=== PATIENT | female | born 2000 | race Caucasian/White ===

== ENCOUNTER 2020-01-15 19:25 | Emergency (ER) | payer SELFPAY ==
[~2020-01-15 19:25] MED LIST: Iopamidol 370 76% 100 ML VIAL ONE
[2020-01-15 19:49] LABS: Pregnancy Test - Urine (BHCG) Negative (Negative); Specific Gravity 1.028 (1.002-1.036)
[2020-01-15 19:50] LABS: Bilirubin Negative (Negative); Blood, Urine Negative (Negative); Clarity Hazy (Clear); Glucose, Urine (Dipstick) Negative (Negative); Leukocyte Trace (Negative); Nitrite Negative (Negative); Pregu Control Background? CLEAR/WHITE (CLR/WHITE); Pregu Control Bar Appear? YES (CONTROL BAR); Protein, Urine (Dipstick) Negative (Neg-Trace)
[2020-01-15 19:51] LABS: Bacteria/HPF Rare-Few HPF (None Seen); Mucous/LPF 2+ LPF (<2+); RBC/HPF None Seen HPF (0-3)
[2020-01-15] MEDS ORDERED: Ketorolac Tromethamine 30 MG/ML VIAL ONE (20:33)
[2020-01-15] MEDS ORDERED: Ondansetron PF 4 MG/2 ML Vial ONE (20:33)
[2020-01-15] MEDS ORDERED: Sodium Chloride 0.9% 1,000 ML ONE (20:33)
[2020-01-15 20:34] LABS: Band 3 % (5-11); Hemoglobin 12.8 g/dL (12.0-16.0); Lymphocytes 43 % (28-48); MDiff Complete? YES; Mean Corpuscular HGB CONC 32.1 g/dL (32.0-36.0); Mean Corpuscular Hemoglobin 26.5 pg (25.0-35.0); Mean Corpuscular Volume 82.4 fL (78.0-98.0); Mean Platelet Volume 5.9 fL (7.4-10.4); Monocytes 4 % (0-4); Neutrophil 50 % (31-61); Platelet Count 407 thou/uL (130-400); RBC Distribution Width 13.8 % (11.5-14.5); Red Blood Cell (RBC) Count 4.83 mill/uL (4.00-5.20); White Blood Cell (WBC) Count 5.6 thou/uL (4.8-10.8)
[2020-01-15 20:37] LABS: Anion Gap 14 mmol/L (10-20); BUN (Urea Nitrogen) 6 mg/dL (8.4-21.0); Calc. Creatinine Clearance 0 mL/min (70-130); Calcium 9.2 mg/dL (7.8-10.44); Carbon Dioxide 24 mmol/L (22-29); Chloride 106 mmol/L (98-107); Estimated GFR-MDRD Greater than 90; Glucose 91 mg/dL (70-105); Sodium 140 mmol/L (136-145)
--- NOTE | 2020-01-15 21:35 | CT ---
CT OF THE ABDOMEN AND PELVIS WITH IV CONTRAST: 01/15/20 INDICATION: History of right lower quadrant abdominal pain. COMPARISON: None. FINDINGS: Lung bases are clear. There is hypodensity involving the liver adjacent to the falciform ligament suspicious for area of fo teri fatty infiltration. The gallbladder is decompressed. Pancreas, adrenal gland and spleen appear wi thin normal limits. The kidneys appear within normal limits. No free fluid or enlarged lymph nodes ar e evident. There is a normal appendix seen within the right lower quadrant of the abdomen. No free fluid is stephanie sly evident. There is a 2.6 cm hypodense lesion within the region of the right adnexa. The bladder is partially d ecompressed. There is a 1.2 cm hypodense lesion seen within the region of the left adnexa. There is a moderate amount of retained stool within the colon. No acute osseous abnormality is evident. IMPRESSION: 1. Bilateral adnexal hypodensities incompletely characterized. If clinically indicated, further evaluation with pelvic ultrasound may be helpful for improved characterization. 2. Normal appendix. 3. Area of hypodensity seen within the liver adjacent to the falciform ligament suspicious for a n area of focal fatty infiltration. POS: BH
[2020-01-15] MEDS ORDERED: methylPREDNISolone Sod Succ/PF 125 MG/2 ML VIAL ONE (22:14)
== END 2020-01-15 22:02 | disposition home or self-care (01) ==
LOC: MADERS 19:25
DX: N83.209 Unspecified ovarian cyst, unspecified side (principal); J45.909 Unspecified asthma, uncomplicated
CPT/HCPCS: 74177; 80048; 81003; 81015; 81025; 85025; 87480; 87491; 87510; 87591; 87660; 96361; 96374; 96375; J1885; J2405; J2930; J7050; Q9967

== ENCOUNTER 2020-06-12 19:22 | Emergency (ER) | payer MEDICAID, SELFPAY ==
[2020-06-12] MEDS ORDERED: Metoclopramide HCl 10 MG TAB ONE (20:05)
[2020-06-12 20:30] LABS: Bilirubin Negative (Negative); Blood, Urine Negative (Negative); Clarity Clear (Clear); Glucose, Urine (Dipstick) Negative (Negative); Ketone, Urine Negative (Negative); Leukocyte Negative (Negative); Nitrite Negative (Negative); Protein, Urine (Dipstick) Negative (Neg-Trace); Specific Gravity, Urine 1.025 (1.005-1.030); Urobilinogen 0.2 mg/dL (Less than 2); pH, Urine 5.5 (5.0-9.0)
[2020-06-12 20:33] LABS: #Basophils 0.1 thou/uL (0.0-0.2); #Eosinphils 0.2 thou/uL (0.0-0.7); #Lymphocytes 2.6 thou/uL (1.20-3.40); #Monocytes 0.5 thou/uL (0.11-0.59); #Neutrophils 2.2 thou/uL (1.40-6.50); %Basophils 1.5 % (0.0-1.0); %Eosinophils 3.4 % (0.0-10.0); %Monocytes 9.4 % (0.0-4.0); %Neutrophils 38.8 % (31.0-61.0); Anisocytosis SLIGHT = 6-15 cells (100X) (0-5/hpf); Hemoglobin 11.2 g/dL (12.0-16.0); Hypochromia SLIGHT = 6-15 cells (100X) (0-5/hpf); MDiff Complete? YES; Mean Corpuscular HGB CONC 31.3 g/dL (32.0-36.0); Mean Corpuscular Hemoglobin 24.8 pg (25.0-35.0); Mean Corpuscular Volume 79.1 fL (78.0-98.0); Mean Platelet Volume 5.2 fL (7.4-10.4); Microcytosis SLIGHT = 6-15 cells (100X) (0-5/hpf); Platelet Count 392 thou/uL (130-400); Platelet Morphology Comment Appears Adequate; RBC Distribution Width 14.3 % (11.5-14.5); Red Blood Cell (RBC) Count 4.52 mill/uL (4.00-5.20); White Blood Cell (WBC) Count 5.6 thou/uL (4.8-10.8)
[2020-06-12 20:40] LABS: ALT (SGPT) 10 U/L (8-55); AST (SGOT) 16 U/L (5-30); Albumin 4.3 g/dL (3.5-5.0); Alkaline Phosphatase 84 U/L (40-100); Anion Gap 17 mmol/L (10-20); BUN (Urea Nitrogen) 5 mg/dL (8.4-21.0); Bilirubin, Total 0.5 mg/dL (0.2-1.2); Calc. Creatinine Clearance 0 mL/min (70-130); Calcium 9.1 mg/dL (7.8-10.44); Carbon Dioxide 23 mmol/L (22-29); Chloride 105 mmol/L (98-107); Estimated GFR-MDRD Greater than 90; Globulin 3.7 g/dL (2.4-3.5); Glucose 78 mg/dL (70-105); Potassium 3.5 mmol/L (3.5-5.1); Sodium 141 mmol/L (136-145)
== END 2020-06-12 20:58 | disposition left against medical advice (07) ==
LOC: MADERS 19:22
DX: R42 Dizziness and giddiness (principal); R51.9 Headache, unspecified; R09.81 Nasal congestion; J45.909 Unspecified asthma, uncomplicated
CPT/HCPCS: 36415; 80053; 81003; 84702; 85025; 99284

== ENCOUNTER 2020-10-16 21:45 | Emergency (ER) | payer MEDICAID, OTHER ==
[2020-10-16] MEDS ORDERED: Acetaminophen 500 MG TAB ONE (22:02)
[2020-10-16] MEDS ORDERED: Ondansetron PF 4 MG/2 ML Vial ONE (22:02)
[2020-10-16 22:50] LABS: Hemoglobin 12.8 g/dL (12.0-16.0); Mean Corpuscular HGB CONC 32.5 g/dL (32.0-36.0); Mean Corpuscular Hemoglobin 24.9 pg (25.0-35.0); Mean Corpuscular Volume 76.5 fL (78.0-98.0); Platelet Count 310 thou/uL (130-400); RBC Distribution Width 13.1 % (11.5-14.5); Red Blood Cell (RBC) Count 5.13 mill/uL (4.00-5.20); White Blood Cell (WBC) Count 8.8 thou/uL (4.8-10.8)
[2020-10-16 22:55] LABS: #Eosinphils 0.1 thou/uL (0.0-0.7); #Lymphocytes 0.5 thou/uL (1.20-3.40); #Monocytes 0.7 thou/uL (0.11-0.59); #Neutrophils 7.6 thou/uL (1.40-6.50); %Basophils 0.4 % (0.0-1.0); %Eosinophils 0.6 % (0.0-10.0); %Lymphocytes 5.9 % (28.0-48.0); %Monocytes 7.4 % (0.0-4.0); %Neutrophils 85.7 % (31.0-61.0); Anisocytosis SLIGHT = 6-15 cells (100X) (0-5/hpf); MDiff Complete? YES; Microcytosis SLIGHT = 6-15 cells (100X) (0-5/hpf); Platelet Morphology Comment Appears Adequate
[2020-10-16 23:05] LABS: ALT (SGPT) 11 U/L (8-55); AST (SGOT) 17 U/L (5-30); Albumin 4.5 g/dL (3.5-5.0); Alkaline Phosphatase 69 U/L (40-100); Anion Gap 17 mmol/L (10-20); BUN (Urea Nitrogen) 13 mg/dL (8.4-21.0); Bilirubin, Total 0.6 mg/dL (0.2-1.2); Calc. Creatinine Clearance 0 mL/min (70-130); Calcium 9.4 mg/dL (7.8-10.44); Carbon Dioxide 19 mmol/L (22-29); Chloride 108 mmol/L (98-107); Glucose 89 mg/dL (70-105); Lipase 31 U/L (8-78); Protein, Total 8.5 g/dL (6.0-8.3); Sodium 140 mmol/L (136-145)
[2020-10-16 23:14] LABS: Bilirubin Small (Negative); Blood, Urine Trace (Negative); Clarity Slightly Cloudy (Clear); Glucose, Urine (Dipstick) Negative (Negative); Ketone, Urine 80 mg/dL (Negative); Leukocyte Small (Negative); Nitrite Negative (Negative); Protein, Urine (Dipstick) Trace mg/dL (Neg-Trace); Urobilinogen 0.2 mg/dL (Less than 2); pH, Urine 5.5 (5.0-9.0)
[2020-10-16 23:26] LABS: Specific Gravity, Urine 1.025 (1.002-1.036)
[2020-10-16 23:26] LABS: Pregnancy Test - Urine (BHCG) Negative (Negative); Pregu Control Background? CLEAR/WHITE (CLR/WHITE); Pregu Control Bar Appear? YES (CONTROL BAR); Specific Gravity 1.025 (1.002-1.036)
[2020-10-16 23:27] LABS: Bacteria/HPF 3+ HPF (None Seen); Mucous/LPF 2+ LPF (<2+); RBC/HPF 0-3 HPF (0-3)
[2020-10-16] MEDS ORDERED: Ketorolac Tromethamine 30 MG/ML VIAL ONE (23:37)
== END 2020-10-16 23:48 | disposition home or self-care (01) ==
LOC: MADERS 21:45
DX: K52.29 Other allergic and dietetic gastroenteritis and colitis (principal); J45.909 Unspecified asthma, uncomplicated
CPT/HCPCS: 36415; 80053; 81003; 81015; 81025; 83690; 85025; 96374; 96375; J1885; J2405